=== PATIENT | female | born 1960 ===

== ENCOUNTER → 2022-10-06 10:16 | Outpatient (CLI) | payer BC, SELFPAY ==
--- NOTE | ~2022-10-06 | US_ITS ---
US axilla RT DATE: 10/06/2022 10:42 INDICATION: Right axillary mass TECHNIQUE: Real-time and color flow imaging of the right axillary soft tissues COMPARISON: None FINDINGS: At the area where the patient complains of a right axillary mass there is largely fatty tis gail, not circumscribed. There are several lymph nodes including one node with very thin uniform hypoechoic cortex and very pr ominent fatty hilum, overall measuring up to 1.4 x 2.7 x 3.2 cm. There is an additional smaller benig n appearing lymph node. IMPRESSION: No suspicious mass is noted; the area of the clinical complaint of lump is fatty tissue c omment without evidence of solid mass. Reviewed, dictated and finalized at [facility]. Reviewed, dictated and finalized at [facility]. IMPRESSION: No suspicious mass is noted; the area of the clinical complaint of lump is fatty tissue comment without evidence of solid mass.
== END ==
PROVIDERS: PCP Physician Assistant; Visit Provider Physician Assistant
DX: R22.31 Localized swelling, mass and lump, right upper limb (principal); D17.21 Benign lipomatous neoplasm of skin and subcutaneous tissue of right arm
CPT/HCPCS: 76882